=== PATIENT | female | born 1960 | race Caucasian/White ===

== ENCOUNTER → 2024-01-01 11:16 | Outpatient (REF) | payer OTHER, SELFPAY | LOC: MRI 3T 11:16 | PROVIDERS: ATTENDING PHYSICIAN Specialist; FAMILY PHYSICIAN Family Medicine | DX: M25.511 Pain in right shoulder (principal) | CPT/HCPCS: 73221 ==

== ENCOUNTER 2024-02-10 06:23 | Day surgery (SDC) | payer OTHER, SELFPAY ==
[2024-01-18 08:34] VITALS: BMI 19.8
[2024-01-18 08:50] LABS: % Basophils 0.8 % (0-2); % Immature Granulocytes 0.4 % (0-0.5); % Lymphocytes 39.3 % (20.5-51.1); % Neutrophils 47.5 % (42.2-75.2); Absolute Eosinophils 0.2 10^3/uL (0-0.7); Absolute Monocytes 0.4 10^3/uL (0.1-0.6); Absolute Neutrophils 2.4 10^3/uL (1.4-6.5); Hematocrit 38.9 % (37.0-47.0); Hemoglobin 13.4 g/dL (12.0-16.0); Mean Corp Hgb Conc. 34.4 g/dL (33.0-37.0); Mean Corpuscular Hgb 31.4 pg (27.0-31.0); Mean Corpuscular Volume 91.1 fL (81.0-99.0); Mean Platelet Volume 10.4 fL (7.4-10.4); Nucleated Red Blood Cells % 0 %; Platelet Count 184 10^3/uL (130-400); Red Blood Cell Count 4.27 10^6/uL (4.20-5.40); Red Cell Dist. Width 12.2 % (11.5-14.5)
[2024-01-18 09:38] LABS: Blood Urea Nitrogen 29 mg/dl (7-17); Calcium 9.5 mg/dl (8.4-10.2); Carbon Dioxide 29 mmol/L (22-30); Chloride 101 mmol/L (98-107); Estimated Creatinine Clearance 71 ml/min; Glucose 93 mg/dl (70-99); Potassium 4.3 mmol/L (3.5-5.1); Sodium 139 mmol/L (135-145); eGFR > 60.00
[2024-02-10] VITALS (8 sets, daily range): BP systolic 132–161; BP diastolic 60–75; BMI 19.8
[2024-02-10] MEDS: NORMOSOL-R 1000 IV (10:45)
== END 2024-02-10 14:25 | disposition home or self-care (01) ==
LOC: SDS 06:23
PROVIDERS: ATTENDING PHYSICIAN Specialist; FAMILY PHYSICIAN Family Medicine
DX: S46.011A Strain of muscle(s) and tendon(s) of the rotator cuff of right shoulder, initial encounter (principal); X58.XXXA Exposure to other specified factors, initial encounter; M75.21 Bicipital tendinitis, right shoulder
CPT/HCPCS: 29827; 29826; 36415; 80048; 85025; 93005

== ENCOUNTER → 2024-06-18 09:49 | Outpatient (REF) | payer MEDICARE, SELFPAY | LOC: WDC 09:49 | PROVIDERS: ATTENDING PHYSICIAN Family Medicine | DX: Z12.31 Encounter for screening mammogram for malignant neoplasm of breast (principal); R00.2 Palpitations | CPT/HCPCS: 77063; 77067; 93225; 93226 ==

== ENCOUNTER → 2024-07-19 09:59 | Outpatient (REF) | payer MEDICARE, SELFPAY ==
[2024-07-19 10:44] LABS: % Basophils 0.9 % (0-2); % Eosinophils 3.2 % (0-6); % Immature Granulocytes 0.2 % (0-0.5); % Lymphocytes 45.6 % (20.5-51.1); % Monocytes 7.1 % (1.7-9.3); Absolute Eosinophils 0.2 10^3/uL (0-0.7); Absolute Lymphocytes 2.1 10^3/uL (1.2-3.4); Absolute Monocytes 0.3 10^3/uL (0.1-0.6); Hematocrit 41.3 % (37.0-47.0); Hemoglobin 14.2 g/dL (12.0-16.0); Mean Corp Hgb Conc. 34.4 g/dL (33.0-37.0); Mean Corpuscular Hgb 31.4 pg (27.0-31.0); Mean Corpuscular Volume 91.4 fL (81.0-99.0); Mean Platelet Volume 9.9 fL (7.4-10.4); Nucleated Red Blood Cells % 0 %; Platelet Count 179 10^3/uL (130-400); Red Blood Cell Count 4.52 10^6/uL (4.20-5.40); Red Cell Dist. Width 12.1 % (11.5-14.5); White Blood Cell Count 4.6 10^3/uL (4.8-10.8)
[2024-07-19 11:01] LABS: ALT (SGPT) 24 U/L (0-35); AST (SGOT) 27 U/L (14-36); Albumin 4.7 g/dl (3.5-5.0); Alkaline Phosphatase 66 U/L (38-126); Blood Urea Nitrogen 24 mg/dl (7-17); Calcium 9.5 mg/dl (8.4-10.2); Carbon Dioxide 32 mmol/L (22-30); Chloride 101 mmol/L (98-107); Glucose 96 mg/dl (70-99); HDL Cholesterol 78 mg/dl; LDL Cholesterol, Calculated 129 mg/dl; Potassium 4.3 mmol/L (3.5-5.1); Sodium 139 mmol/L (135-145); Total Bilirubin 0.6 mg/dl (0.2-1.3); Total Cholesterol 219 mg/dl (50-199); Total Protein 7.3 g/dl (6.3-8.2); Triglyceride 62 mg/dl (10-149); Very Low Density Lipoprotein 12 mg/dl (0-30); eGFR > 60.00
[2024-07-19 11:48] LABS: Glycohemoglobin (HgbA1c) 5.4 % (4.0-5.6)
[2024-07-19 13:17] LABS: TSH Reflex To Free T4 6.49 uIU/ml (0.47-4.68)
[2024-07-19 13:56] LABS: Free T4 0.79 ng/dl (0.78-2.19)
== END ==
LOC: REG 09:59
PROVIDERS: ATTENDING PHYSICIAN Family Medicine
DX: F51.04 Psychophysiologic insomnia (principal); R53.83 Other fatigue; Z87.19 Personal history of other diseases of the digestive system; I10 Essential (primary) hypertension; Z83.3 Family history of diabetes mellitus
CPT/HCPCS: 36415; 80053; 80061; 83036; 84439; 84443; 85025

== ENCOUNTER 2024-11-02 01:33 | Emergency (ER) | payer MEDICARE, SELFPAY ==
[2024-11-02 01:38] VITALS: BP 165/74
--- NOTE | 2024-11-02 02:06 | ED.GENMED ---
History of Present Illness
General
Chief Complaint: Throat Problem
Source: patient
Exam Limitations: none
Time Seen by Provider: 11/02/24 01:45
Nursing documentation reviewed up to this point in time: agreed with
History of Present Illness
History of Present Illness:
This a pleasant 64-year-old female presents to the emergency department with sore throat. She thinks her uvula is swollen. She states that approximate 3 weeks ago she was 'shuffling donkey maneuver 'at some got into her mouth. Denies any
difficulty breathing or troubles
Phy Exam
General Physical Exam
General Presentation: well appearing and no apparent distress
General Skin: warm and dry
General Habitus: normal
General Mental: alert
General Hydration: appears well hydrated
ENT Exam
ENT Exam: EOMI, pharynx normal, neck supple and normocephalic
Eye Exam
Eye Exam: PERRL, cornea clear and conjunctiva normal
Cardiovascular Exam
Cardiovascular Exam: regular rate/rhythm, no edema, no murmur and normal peripheral pulses
Pulmonary Exam
Pulmonary Exam: lungs clear, no respiratory distress, no rales, no crackles, no rhonchi, no stridor, no wheezing and no cough
Gastrointestinal Exam
Gastrointestinal Exam: normal bowel sounds, non tender, soft, no organomegaly, no pulsatile mass and non distended
Neurological Exam
Neurological Exam: alert, oriented x3, no motor deficits and speech normal
Musculoskeletal Exam
Musculoskeletal Exam: full ROM and no edema
Skin Exam
Skin Exam: normal color, warm/dry, no rash and no petechia
Psychiatric Exam
Psychiatric Exam: normal mood/affect
Course
Orders/Labs/Results
Orders:
Orders
11/02/24 01:58
CR Soft Tissue Neck Urgent
Comment:
Reason For Exam: swollen throat by report
11/02/24 02:09
Rapid Strep Group A Urgent
PRITI Source: Throat/Pharynx
Specimen Description:
Date Specimen was Collected: 11/02/24
Time Specimen was Collected: 02:05
11/02/24 02:41
Dexamethasone Pf [Decadron] 10 mg PO NOW STA
Vital Signs
Initial and Last Documented VS:
Initial Vital Signs
Temp Pulse Resp BP Pulse Ox
98.1 F 56 16 165/74 100
11/02/24 01:38 11/02/24 01:38 11/02/24 01:38 11/02/24 01:38 11/02/24 01:38
Last Documented Vital Signs
Temp Pulse Resp BP Pulse Ox
98.1 F 56 18 165/74 100
11/02/24 01:38 11/02/24 01:38 11/02/24 02:12 11/02/24 01:38 11/02/24 01:38
*Critical Care Note
Total Time (30-74mins, 75-104mins- exclusive of procedures): Not Applicable
ED Attending Note
-
Portions of this chart may have been created with voice recognition software.� Occasional wrong word or��sound alike� substitutions may have occurred due to the inherent limitations of voice recognition software.
Discharge Plan
Departure
Patient Disposition: Home (Routine Discharge)
Date of Disposition: 11/02/24
Time of Disposition: 02:47
Patient with high blood pressure during this ER visit?: Yes
Discharge Problem:
Uvular swelling
Instructions: Sore Throat, Adult (DC), Sore Throat - Adult
Prescriptions:
No Action
ibuprofen [Advil] 200 mg Tablet
200 mg PO Q6H PRN (Reason: pain)
cholecalciferol (vitamin D3) [Vitamin D3] 25 mcg (1,000 unit) Tablet
25 mcg PO DAILY
[place] 3-6-9 1,200 mg Capsule
1 cap PO DAILY
magnesium citrate 125 mg Capsule
125 mg PO DAILY
whey protein concentrate 8 gram-40 kcal /scoop Powder
1 - 2 ea PO DAILY
Referrals:
Fam Ellis MD [Active] -
Gracie Oneill MD [Family Provider] -
Activity Restrictions/Additional Instructions:
Thank You for choosing [facility].
It was a pleasure meeting you and taking part in your care. We hope for your continued healing and wellness.
Please read discharge instructions in their entirety. However, they are for general education and may not describe your exact diagnosis at discharge. Information on your ER visit and medical conditions were discussed with you along with appropriate
follow up information...
If indicated, please take your medications as instructed and indicated on discharge paperwork.
Please schedule a follow up appointment as directed. Call to schedule an appointment
Please return to the emergency department with ANY change in, persisting, or worsening of symptoms. If any of your symptoms do not improve, or persist, or become more severe within 6-12 hours, please return to the emergency department for further
care.
Please return to the emergency department if you develop a headache, neck pain/stiffness, fever greater than 100.4F, chest pain, shortness of breath, persistent nausea, vomiting, slurred speech, difficulty walking, numbness/tingling, weakness, signs
of infection or any other symptoms that are worrisome to you.
If you have any questions or concerns please do not hesitate to call the Hospital at or E-mail me directly at [email or web address]
Interventions
Interventions:
*Risk Screen - Suicide Last Done: 11/02/24 01:38
*Nursing Disposition Last Done: 11/02/24 03:13
ED-EENT Assessment Last Done: 11/02/24 02:11
ED- Pulmonary Assessment Last Done: 11/02/24 02:11
Discharge Date and Time
Discharge Date/Time: 11/02/24 03:13
Print Language: DIVEHI
[2024-11-02] MEDS: DECADRON 10 MG PO (02:47)
== END 2024-11-02 03:13 | disposition home or self-care (01) ==
LOC: EMR 01:33
PROVIDERS: EMERGENCY PHYSICIAN Student in an Organized Health Care Education/Training Program; FAMILY PHYSICIAN Family Medicine
DX: R22.1 Localized swelling, mass and lump, neck (principal); R07.0 Pain in throat
CPT/HCPCS: 99283; 70360; 87070; 87880

== ENCOUNTER 2024-12-03 06:17 | Day surgery (SDC) | payer MEDICARE, SELFPAY | END 2024-12-03 12:54 | disposition home or self-care (01) | LOC: GI 06:17 | PROVIDERS: ATTENDING PHYSICIAN Specialist | DX: Z08 Encounter for follow-up examination after completed treatment for malignant neoplasm (principal); C7A.020 Malignant carcinoid tumor of the appendix; Z98.0 Intestinal bypass and anastomosis status; K57.30 Diverticulosis of large intestine without perforation or abscess without bleeding | CPT/HCPCS: 45378 ==

== ENCOUNTER → 2024-12-13 14:16 | Outpatient (REF) | payer MEDICARE, SELFPAY ==
[2024-12-13 15:52] LABS: Free T4 0.75 ng/dl (0.78-2.19)
[2024-12-13 16:06] LABS: TSH 4.34 uIU/ml (0.47-4.68)
== END ==
LOC: REG 14:16
PROVIDERS: ATTENDING PHYSICIAN Family Medicine
DX: R79.89 Other specified abnormal findings of blood chemistry (principal); F41.9 Anxiety disorder, unspecified; F51.04 Psychophysiologic insomnia; Z90.49 Acquired absence of other specified parts of digestive tract
CPT/HCPCS: 36415; 84439; 84443

== ENCOUNTER → 2025-01-16 12:45 | Outpatient (REF) | payer MEDICARE, SELFPAY ==
[2025-01-16 13:50] LABS: ALT (SGPT) 20 U/L (0-35); AST (SGOT) 21 U/L (14-36); Albumin 4.6 g/dl (3.5-5.0); Alkaline Phosphatase 61 U/L (38-126); Total Bilirubin 0.6 mg/dl (0.2-1.3); Total Protein 7.5 g/dl (6.3-8.2)
== END ==
LOC: REG 12:45
PROVIDERS: ATTENDING PHYSICIAN Specialist; FAMILY PHYSICIAN Family Medicine
DX: Z85.9 Personal history of malignant neoplasm, unspecified (principal)
CPT/HCPCS: 36415; 80076; 86316

== ENCOUNTER → 2025-01-17 16:21 | Outpatient (REF) | payer MEDICARE, SELFPAY | LOC: REG 16:21 | PROVIDERS: ATTENDING PHYSICIAN Specialist; FAMILY PHYSICIAN Family Medicine | DX: Z85.9 Personal history of malignant neoplasm, unspecified (principal) | CPT/HCPCS: 87324; 87449 ==

== ENCOUNTER → 2025-02-15 15:01 | Outpatient (REF) | payer MEDICARE, SELFPAY | LOC: RAD 15:01 | PROVIDERS: ATTENDING PHYSICIAN Family Medicine | DX: N95.1 Menopausal and female climacteric states (principal); Z82.62 Family history of osteoporosis; Z78.0 Asymptomatic menopausal state; M17.4 Other bilateral secondary osteoarthritis of knee | CPT/HCPCS: 77080 ==

== ENCOUNTER 2025-04-30 18:47 | Emergency (ER) | payer MEDICARE, SELFPAY ==
[2025-04-30 18:51] VITALS: BP 155/84
--- NOTE | 2025-04-30 20:05 | ED.GENMED ---
History of Present Illness
General
Chief Complaint: Head Injury
Source: patient
Exam Limitations: none
Time Seen by Provider: 04/30/25 19:53
History of Present Illness
History of Present Illness:
64yoF with no significant past medical history presenting for evaluation after head injury. Patient was playing pickle ball approximately 8 hours ago. She was running backwards and tripped. She fell on her buttocks and subsequently hit the back
of her head on the court. There was no loss of consciousness. Patient is presenting with head pressure and photophobia. She denies any dizziness, vomiting, or neck pain. She does not take any blood thinners.
Phy Exam
General Physical Exam
General Presentation: well appearing and no apparent distress
General Skin: warm and dry
General Habitus: normal
General Mental: alert
ENT Exam
ENT Exam: other (+Small occipital hematoma palpated. No ecchymosis. No cervical spine tenderness.)
Eye Exam
Eye Exam: PERRL and conjunctiva normal
Pulmonary Exam
Pulmonary Exam: no respiratory distress
Neurological Exam
Neurological Exam: alert
[place]ris Coma Scale
Eye Opening: Spontaneous
Verbal Response: Oriented
Motor Response: Obeys Commands
GCS Total Score: 15
Skin Exam
Skin Exam: normal color and warm/dry
Psychiatric Exam
Psychiatric Exam: normal mood/affect
Course
Orders/Labs/Results
Orders:
Orders
04/30/25 20:05
CT Head W/o Iv Contrast Urgent
Comment:
Reason For Exam: head injury
Vital Signs
Initial and Last Documented VS:
Initial Vital Signs
Temp Pulse Resp BP Pulse Ox
98.2 F 68 16 155/84 98
04/30/25 18:51 04/30/25 18:51 04/30/25 18:51 04/30/25 18:51 04/30/25 18:51
Last Documented Vital Signs
Temp Pulse Resp BP Pulse Ox
98.2 F 60 18 138/83 96
04/30/25 18:51 04/30/25 21:09 04/30/25 21:09 04/30/25 21:09 04/30/25 21:09
MDM/Problems Addressed
Differential Diagnosis Includes:
64yoF here after a head injury that occurred while playing pickle ball. C/o head pressure and photophobia. She is awake, alert, with a GCS of 15. There is a small occipital hematoma palpated on exam. Cervical spine cleared via Nexus criteria.
Differential diagnosis includes: Closed head injury, concussion, intracranial hemorrhage, fracture
CT head obtained which is negative for injuries. There is a 7 mm calcified meningioma seen incidentally which patient was notified of. Copy of radiology report given to patient. Supportive care discussed including rest and hydration. She was
instructed to follow-up with her PCP and was discharged in stable condition.
*Pulse Oximetry
SaO2: 98
Oxygen Mode of Delivery: Room air
Patient hypoxic: no
*Critical Care Note
Total Time (30-74mins, 75-104mins- exclusive of procedures): Not Applicable
ED Attending Note
-
Portions of this chart may have been created with voice recognition software.� Occasional wrong word or��sound alike� substitutions may have occurred due to the inherent limitations of voice recognition software.
Discharge Plan
Departure
Patient Disposition: Home (Routine Discharge)
Date of Disposition: 04/30/25
Time of Disposition: 20:59
Patient with high blood pressure during this ER visit?: Yes
Discharge Problem:
Closed head injury
Instructions: Head Injury in Adults (DC)
Prescriptions:
No Action
ibuprofen [Advil] 200 mg Tablet
200 mg PO Q6H PRN (Reason: pain)
cholecalciferol (vitamin D3) [Vitamin D3] 25 mcg (1,000 unit) Tablet
25 mcg PO DAILY
[place] 3-6-9 1,200 mg Capsule
1 cap PO DAILY
magnesium citrate 125 mg Capsule
125 mg PO DAILY
whey protein concentrate 8 gram-40 kcal /scoop Powder
1 - 2 ea PO DAILY
Referrals:
Gracie Oneill MD [Family Provider, [facility]]
Activity Restrictions/Additional Instructions:
Rest over the next few days and stay hydrated. You may do light aerobic activity such as walking but avoid any strenuous activities for now. You may take Tylenol or ibuprofen as needed for headaches.
Please follow-up with your family doctor. Return to the ER with any worsening symptoms including confusion, seizures, or excessive vomiting.
Interventions
Interventions:
*Risk Screen - Suicide Last Done: 04/30/25 18:52
*General Assessment Last Done: 04/30/25 19:58
*Neglect/Abuse Screening Last Done: 04/30/25 18:52
*ED- Fall Risk Assessment Last Done: 04/30/25 19:58
*ED COVID-19 Vaccine History Last Done: 04/30/25 19:58
*ED Influenza Vaccine History Last Done: 04/30/25 19:58
*Nursing Disposition Last Done: 04/30/25 21:09
ED- Neurological Assessment Last Done: 04/30/25 19:58
ED-Skin Assessment Last Done: 04/30/25 19:58
Discharge Date and Time
Discharge Date/Time: 04/30/25 21:10
Print Language: MOSOTHO
[2025-04-30 21:09] VITALS: BP 138/83
== END 2025-04-30 21:10 | disposition home or self-care (01) ==
LOC: EMR 18:47
PROVIDERS: EMERGENCY PHYSICIAN Emergency Medicine; FAMILY PHYSICIAN Family Medicine
DX: S09.90XA Unspecified injury of head, initial encounter (principal); D32.9 Benign neoplasm of meninges, unspecified; W01.198A Fall on same level from slipping, tripping and stumbling with subsequent striking against other object, initial encounter; Y93.02 Activity, running; Y93.73 Activity, racquet and hand sports; Y92.318 Other athletic court as the place of occurrence of the external cause
CPT/HCPCS: 99284; 70450

== ENCOUNTER → 2025-07-11 10:47 | Outpatient (REF) | payer MEDICARE, SELFPAY ==
[2025-07-11 11:40] LABS: Hematocrit 40.1 % (37.0-47.0); Hemoglobin 13.3 g/dL (12.0-16.0); Mean Corp Hgb Conc. 33.2 g/dL (33.0-37.0); Mean Corpuscular Volume 91.8 fL (81.0-99.0); Nucleated Red Blood Cells % 0 %; Platelet Count 194 10^3/uL (130-400); Red Cell Dist. Width 12.4 % (11.5-14.5)
[2025-07-11 12:15] LABS: ALT (SGPT) 22 U/L (0-35); AST (SGOT) 22 U/L (14-36); Albumin 4.6 g/dl (3.5-5.0); Alkaline Phosphatase 73 U/L (38-126); Blood Urea Nitrogen 14 mg/dl (7-17); Calcium 9.1 mg/dl (8.4-10.2); Carbon Dioxide 28 mmol/L (22-30); Chloride 102 mmol/L (98-107); Glucose 89 mg/dl (70-99); HDL Cholesterol 67 mg/dl; LDL Cholesterol, Calculated 99 mg/dl; Potassium 4.3 mmol/L (3.5-5.1); Sodium 137 mmol/L (135-145); Total Protein 7.4 g/dl (6.3-8.2); Very Low Density Lipoprotein 13 mg/dl (0-30); eGFR > 60.00
== END ==
LOC: REG 10:47
PROVIDERS: ATTENDING PHYSICIAN Family Medicine
DX: Z13.220 Encounter for screening for lipoid disorders (principal); R41.3 Other amnesia; E78.00 Pure hypercholesterolemia, unspecified; R79.89 Other specified abnormal findings of blood chemistry; I10 Essential (primary) hypertension
CPT/HCPCS: 36415; 80053; 80061; 85025

== ENCOUNTER → 2025-07-23 12:05 | Outpatient (REF) | payer MEDICARE, SELFPAY | LOC: REG 12:05 | PROVIDERS: ATTENDING PHYSICIAN Family Medicine | DX: Z13.220 Encounter for screening for lipoid disorders (principal); R41.3 Other amnesia; E78.00 Pure hypercholesterolemia, unspecified; R79.89 Other specified abnormal findings of blood chemistry; I10 Essential (primary) hypertension | CPT/HCPCS: 36415; 84443 ==